=== PATIENT | male | born 1945 | race Caucasian/White ===

== ENCOUNTER 2019-06-01 14:19 | Emergency (ER) | payer MEDICARE ==
[~2019-06-01 14:19] MED LIST: ALTOPREV40 MG PO; ASPIRIN 81M81 MG/TA2 PO; BYSTOLIC10 MG PO; CADUET 10 MG-101 TAB PO; CEPHALEXIN500 M1 PO; GLUCOPHAGE1000 MG PO; GLUCOPHAGE500 MG/TAB PO; HYDRODIURIL50 MG PO; IMDUR 30MG30 MG/TAB PO; INSHUMULIN7030 SC; INSHUMULINR SC; INSULIN 70/3100 U/ML SC; K-DUR 10 MEQ T10 MEQ PO; KLOR-CON 1010 MEQ PO; KLOR-CON M2020 MEQ PO; LASIX 20MG TABL20 MG PO; LASIX 40MG TABL40 MG PO; LEVEMIR SQ; LEVEMIR100 U/ML SC; LIPITOR20 MG PO; LOPRESSOR 550 MG/TAB PO; LOPRESSOR100 MG PO; MAGNESIUM250 M1 PO; MEBENDAZOLE100 MG PO; MULTIPLE VITAMI1 CAP PO; NATURE'S BL400 IU/ML PO; NITROSTAT0.4 MG/TAB SL; NIX CREME RINSE60 M1 TP; NOVLOG SQ; NYSTATIN100000 U/1 TOP; PHARMASSURE ZIN50 MG PO; POTASSIUM20 MEQ PO; PRINIVIL10 MG PO; PRINIVIL20 MG PO; RISPERDAL 0.5M0.5 MG PO; TOPROL XL 50MG50 MG PO; TOPROL XL100 MG PO; ULTRAM 50MG TAB50 MG PO; VERMOX100 MG PO; VITAMIN B COMPL1 T16 PO; ZESTRIL 20MG TA20 MG PO; ZESTRIL40 MG PO
[2019-06-01 14:21] VITALS: PULSE 91; TEMP 100
[2019-06-01 15:00] LABS: BASO % 0.1 % (0.0-2.0); GRAN # 11.5 (1.4-6.5); GRAN % 81.4 % (42.2-75.2); HEMATOCRIT 45.3 % (42.0-52.0); HEMOGLOBIN 16.2 g/dl (13.5-18.0); LYMPH # 1.2 (1.2-3.4); LYMPH % 8.6 % (20.0-51.0); MEAN CELL VOLUME 82 fl (80.0-100.0); MEAN CORPUSCULAR HEMOGLOBIN 29 pg (27.0-31.0); MEAN CORPUSCULAR HGB CONC 36 g/dl (33.0-37.0); MEAN PLATELET VOLUME 9.8 fl (7.4-10.4); MONO # 1.3 (0.1-0.6); PLATELET COUNT 140 K/mm3 (130-400); RED BLOOD COUNT 5.56 M/mm3 (4.20-5.60); REDCELL DISTRIBUTION WIDTH-CV 13.7 % (11.5-14.5)
[2019-06-01 15:06] LABS: INR 1.2 (0.8-3.0); PROTHROMBIN TIME 14.1 SECONDS (9.7-12.8)
[2019-06-01 15:09] LABS: ALANINE AMINOTRANSFERASE 29 U/L (21-72); ALBUMIN 4.1 gm/dL (3.5-5.0); ALKALINE PHOSPHATASE 135 U/L (50-136); ANION GAP 22 mmol/L (7-16); AST,SGOT 34 U/L (15-37); BLOOD UREA NITROGEN 13 mg/dL (9-20); CALCIUM 9.5 mg/dL (8.4-10.2); CHLORIDE 107 mmol/L (98-107); CREATININE, serum 0.59 (0.66-1.25); GLUCOSE 354 mg/dL (74-106); PARTIAL THROMBOPLASTIN TIME 25.1 SECONDS (26.0-37.0); POTASSIUM 3.6 mmol/L (3.4-5.0); SODIUM 143 mmol/L (137-145); TOTAL PROTEIN 7.5 gm/dL (6.4-8.2)
[2019-06-01 15:12] LABS: COLLECTION METHOD CLEAN CATCH
[2019-06-01 15:21] LABS: TROPONIN-I 0.016 ng/mL (0.000-0.035)
[2019-06-01 15:24] LABS: ACETAMINOPHEN < 10 ug/mL (10-30); CARBON DIOXIDE 14 mmol/L (22-30); SALICYLATE < 1.0 mg/dL
[2019-06-01 15:25] LABS: PROLACTIN 12.1 ng/mL (3.7-17.9)
[2019-06-01 15:31] LABS: MUCOUS Present /lpf; PH 5 (5-8); SQUAMOUS EPITHELIAL 0-2 /hpf; URINE APPEARANCE Clear; URINE BACTERIA None Seen /hpf; URINE BILIRUBIN Negative (NEGATIVE); URINE BLOOD 2+ (NEGATIVE); URINE COLOR Yellow; URINE GLUCOSE 3+ (NEGATIVE); URINE KETONE 2+ (NEGATIVE); URINE LEUKOCYTE ESTERASE Negative (NEGATIVE); URINE NITRATE Negative (NEGATIVE); URINE PROTEIN(semi-quant) 2+ (NEGATIVE); URINE RBC 0-2 /hpf; URINE UROBILINOGEN Negative (NEGATIVE)
[2019-06-01 15:35] LABS: TRICYCLIC ANTIDEPRESS URINE NEGATIVE
[2019-06-01 16:04] LABS: ARTERIAL BLD GAS TCO2 CT 16.1; ARTERIAL BLOOD GAS BASE EXCESS -8.1 (-2-2); ARTERIAL BLOOD GAS HCO3 15.3 meq/L (22-26); ARTERIAL BLOOD GAS pH 7.37 (7.35-7.45)
[2019-06-01 16:10] VITALS: BP 165/85
[2019-06-01 17:30] LABS: CALCIUM 8.7 mg/dL (8.4-10.2); CREATININE, serum 0.57 (0.66-1.25); POTASSIUM 3.7 mmol/L (3.4-5.0)
== END 2019-06-01 17:23 | disposition short-term general hospital (02) ==
LOC: COL.ER 14:19
PROVIDERS: Emergency Medicine; Family Medicine
DX: I63.9 Cerebral infarction, unspecified (principal); E11.9 Type 2 diabetes mellitus without complications; I10 Essential (primary) hypertension; F17.210 Nicotine dependence, cigarettes, uncomplicated; E86.0 Dehydration; F10.20 Alcohol dependence, uncomplicated; Z79.4 Long term (current) use of insulin; Z79.82 Long term (current) use of aspirin
CPT/HCPCS: A4216; J0330; J0696; J1953; J2060; J2704; J3480; J7030

== ENCOUNTER 2020-08-03 14:09 | Emergency (ER) | payer MEDICARE, MEDICAID ==
[~2020-08-03] VITALS: Ht 152.4 cm; Wt 84.1 kg
[~2020-08-03 14:09] MED LIST changes: +BYSTOLIC20 MG PO; +KEPPRA750 MG PO; +LIPITOR 10MG10 MG PO; +NORVASC 10MG10 MG PO; +PLAVIX 75MG TAB75 MG PO; +SEROQUEL50 MG PO; +TOPROL XL 25MG25 MG PO; +TUMS ULTRA ST1000 MG PO; +TYLENOL 325MG325 MG PO
[2020-08-03 14:14] VITALS: TEMP 98.1
[2020-08-03 14:54] LABS: ALANINE AMINOTRANSFERASE 35 U/L (4-49); ALBUMIN 3.5 gm/dL (3.5-5.0); ALKALINE PHOSPHATASE 87 U/L (50-136); ANION GAP 10 mmol/L (7-16); AST,SGOT 49 U/L (15-37); BILIRUBIN,TOTAL 1.8 mg/dL (0.0-1.0); BLOOD UREA NITROGEN 4 mg/dL (9-20); CALCIUM 8.5 mg/dL (8.4-10.2); CARBON DIOXIDE 22 mmol/L (22-30); CHLORIDE 101 mmol/L (98-107); CREATININE, serum 0.49 (0.66-1.25); GLUCOSE 312 mg/dL (74-106); POTASSIUM 3.3 mmol/L (3.4-5.0); SODIUM 133 mmol/L (137-145); TOTAL PROTEIN 6.3 gm/dL (6.4-8.2)
[2020-08-03 14:56] LABS: BASO % 0.1 % (0.0-2.0); EOS # 0.1 (0.0-0.7); EOS % 0.9 % (0-4.0); GRAN # 4.4 (1.4-6.5); GRAN % 64.4 % (42.2-75.2); HEMOGLOBIN 12.6 g/dl (13.5-18.0); INR 1.2 (0.8-3.0); LYMPH # 1.7 (1.2-3.4); LYMPH % 25.5 % (20.0-51.0); MEAN CELL VOLUME 82 fl (80.0-100.0); MEAN CORPUSCULAR HEMOGLOBIN 30 pg (27.0-31.0); MEAN CORPUSCULAR HGB CONC 36 g/dl (33.0-37.0); MEAN PLATELET VOLUME 9.9 fl (7.4-10.4); MONO # 0.6 (0.1-0.6); MONO % 8.8 % (1.7-9.3); PLATELET COUNT 103 K/mm3 (130-400); PROTHROMBIN TIME 13.7 SECONDS (9.7-12.8); RED BLOOD COUNT 4.27 M/mm3 (4.20-5.60); REDCELL DISTRIBUTION WIDTH-CV 14.5 % (11.5-14.5)
[2020-08-03 14:58] LABS: PARTIAL THROMBOPLASTIN TIME 28.3 SECONDS (26.0-37.0)
[2020-08-03 15:05] LABS: HEMATOCRIT 35.2 % (42.0-52.0)
[2020-08-03 15:07] LABS: TROPONIN-I < 0.012 ng/mL (0.000-0.035)
[2020-08-03 16:24] LABS: COLLECTION METHOD CLEAN CATCH
[2020-08-03 16:30] LABS: MUCOUS Present /lpf; PH 6 (5-8); SQUAMOUS EPITHELIAL None Seen /hpf; URINE APPEARANCE Clear; URINE BACTERIA None Seen /hpf; URINE BILIRUBIN Negative (NEGATIVE); URINE BLOOD Negative (NEGATIVE); URINE COLOR Yellow; URINE GLUCOSE 3+ (NEGATIVE); URINE KETONE Negative (NEGATIVE); URINE LEUKOCYTE ESTERASE Negative (NEGATIVE); URINE NITRATE Negative (NEGATIVE); URINE PROTEIN(semi-quant) Negative (NEGATIVE); URINE RBC 0-2 /hpf; URINE UROBILINOGEN Negative (NEGATIVE)
[2020-08-03 16:37] LABS: PROLACTIN 9.7 ng/mL (3.7-17.9)
[2020-08-03 16:52] LABS: TRICYCLIC ANTIDEPRESS URINE NEGATIVE
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
[2020-08-03 18:58] VITALS: BP 166/83; PULSE 88
== END 2020-08-03 19:05 | disposition short-term general hospital (02) ==
LOC: COL.ER 14:09
PROVIDERS: Physician Assistant
DX: R07.9 Chest pain, unspecified (principal); R41.82 Altered mental status, unspecified; R74.0 Nonspecific elevation of levels of transaminase and lactic acid dehydrogenase [LDH]; R00.0 Tachycardia, unspecified; G40.909 Epilepsy, unspecified, not intractable, without status epilepticus; I10 Essential (primary) hypertension; I25.2 Old myocardial infarction; E78.5 Hyperlipidemia, unspecified; E11.9 Type 2 diabetes mellitus without complications; F17.220 Nicotine dependence, chewing tobacco, uncomplicated; Z79.82 Long term (current) use of aspirin; Z79.02 Long term (current) use of antithrombotics/antiplatelets; Z86.73 Personal history of transient ischemic attack (TIA), and cerebral infarction without residual deficits; Z79.4 Long term (current) use of insulin; Z95.5 Presence of coronary angioplasty implant and graft; Z88.6 Allergy status to analgesic agent
CPT/HCPCS: C9113; J7030; Q9967